=== PATIENT | female | born 1970 | race African-American/Black ===

== ENCOUNTER → 2016-09-09 | Emergency (ER) | payer OTHER ==
[~2016-09-09] MED LIST: IBUPROFEN 600 MG TABLET (FP) PO ONE; amLODIPine BESYLATE 5 MG TABLET (FP) ONE; amLODIPine BESYLATE 5 MG TABLET (FP) PO ONE
[2016-09-09 10:00] VITALS: TEMP 98.3; BMI 26.6
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
[2016-09-09 13:21] VITALS: BP 138/90; PULSE 80
== END | disposition home or self-care (01) ==
LOC: JER 09:51
DX: S00.03XA Contusion of scalp, initial encounter (principal); I10 Essential (primary) hypertension; F41.9 Anxiety disorder, unspecified; V43.52XA Car driver injured in collision with other type car in traffic accident, initial encounter; Y92.414 Local residential or business street as the place of occurrence of the external cause; Y93.89 Activity, other specified; Y99.8 Other external cause status
CPT/HCPCS: 70450-TC; 84703; 99282-25

== ENCOUNTER 2017-04-23 17:49 | Emergency (ER) | payer OTHER ==
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
[2017-04-23 19:20] VITALS: TEMP 98.9; BMI 24.0
[2017-04-23 19:26] LABS: MCH 31.5 pg (25.7-33.7); MCHC 32.5 g/dl (32.0-36.0); MEAN CELL VOLUME 97.1 fl (80-96); MEAN PLT VOLUME 10.6 fl (7.5-11.1); PLATELET COUNT 213 K/MM3 (134-434); WHITE BLOOD COUNT 8.3 K/mm3 (4.0-10.0)
[2017-04-23 19:32] LABS: URINE APPEARANCE CLEAR; URINE BILIRUBIN NEGATIVE (NEGATIVE); URINE BLOOD 1+ (NEGATIVE); URINE COLOR LTYELLOW; URINE GLUCOSE (UA) NEGATIVE (NEGATIVE); URINE KETONE NEGATIVE (NEGATIVE); URINE LEUK ESTERASE NEGATIVE (NEGATIVE); URINE NITRITE NEGATIVE (NEGATIVE); URINE PROTEIN NEGATIVE (NEGATIVE); URINE UROBILINOGEN NEGATIVE mg/dL (0.2-1.0)
[2017-04-23 19:52] LABS: URINE RBC 1 /hpf (0-3); URINE WBC <1 /hpf (3-5)
[2017-04-23 20:09] LABS: ALK PHOS 59 U/L (45-117); ANION GAP 7 (8-16); BILIRUBIN,TOTAL 0.2 mg/dL (0.2-1.0); CALCIUM 9.4 mg/dL (8.5-10.1); CO2 29 mmol/L (21-32); CREATININE 0.5 mg/dL (0.55-1.02); GLUCOSE,RANDOM 97 mg/dL (74-106); SGOT/AST 22 U/L (15-37); SGPT/ALT 32 U/L (12-78); TOT PROT 7.4 g/dl (6.4-8.2)
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
[2017-04-23 21:45] VITALS: BP 140/68; PULSE 68
== END 2017-04-23 21:45 | disposition home or self-care (01) ==
LOC: JER 17:49
DX: M54.5 Low back pain (principal); V47.5XXA Car driver injured in collision with fixed or stationary object in traffic accident, initial encounter; Y92.488 Other paved roadways as the place of occurrence of the external cause; Y93.89 Activity, other specified; I10 Essential (primary) hypertension; F32.9 Major depressive disorder, single episode, unspecified; F17.210 Nicotine dependence, cigarettes, uncomplicated
CPT/HCPCS: 36415; 70450-TC; 71010-TC; 72125-TC; 73130-TC-LT; 80053; 81003; 81015; 84703; 85027; 99282-25

== ENCOUNTER 2021-02-03 23:34 | Emergency (ER) | payer SELFPAY ==
[2021-02-04 00:01] VITALS: BP 108/72; PULSE 74; TEMP 97.9; BMI 24.0
== END 2021-02-04 05:03 | disposition home or self-care (01) ==
LOC: JER 23:34
DX: F10.920 Alcohol use, unspecified with intoxication, uncomplicated (principal)
CPT/HCPCS: 99281-25

== ENCOUNTER 2022-04-20 10:24 | Emergency (ER) | payer OTHER ==
[2022-04-20 10:29] VITALS: BP 115/71; PULSE 86; RESP 18; TEMP 98.6; BMI 25.6
== END 2022-04-20 13:38 | disposition home or self-care (01) ==
LOC: JER 10:24
DX: J06.9 Acute upper respiratory infection, unspecified (principal)
CPT/HCPCS: 0241U-QW; 71046-TC-FY; 99284-25

== ENCOUNTER 2023-02-25 12:09 | Emergency (ER) | payer OTHER ==
[2023-02-25 12:22] VITALS: RESP 18; BMI 25.7
[2023-02-25 14:19] LABS: BASO % 0.9 % (0-2.0); EOS % 0.2 % (0-4.5); HEMATOCRIT 41.7 % (32.4-45.2); HEMOGLOBIN 13.5 GM/dL (10.7-15.3); LYMPH % 23.2 % (8-40); MCH 29.7 pg (25.7-33.7); MCHC 32.4 g/dl (32.0-36.0); MEAN CELL VOLUME 91.5 fl (80-96); MEAN PLT VOLUME 10.3 fl (7.5-11.1); MONO % 9.1 % (3.8-10.2); NEUT % 66.6 % (42.8-82.8); PLATELET COUNT 331 10^3/uL (134-434); RBC 4.55 M/mm3 (3.60-5.2); RDW 14.1 % (11.6-15.6); WHITE BLOOD COUNT 12.9 K/mm3 (4.0-10.0)
[2023-02-25 14:23] LABS: EPI CELLS >36 /uL (0-25.1); HYALINE CASTS 4 /uL (0-3.1); URINE APPEARANCE CLOUDY; URINE BACTERIA 1032 /uL (0-1359); URINE BILIRUBIN NEGATIVE (NEGATIVE); URINE COLOR DK YELLOW; URINE GLUCOSE (UA) NEGATIVE (NEGATIVE); URINE KETONE 2+ (NEGATIVE); URINE LEUK ESTERASE 1+ (NEGATIVE); URINE NITRITE NEGATIVE (NEGATIVE); URINE PROTEIN 1+ (NEGATIVE); URINE RBC 32 /uL (0-23.9); URINE WBC 52 /uL (0-25.8)
[2023-02-25 14:40] LABS: ALBUMIN 4.5 g/dl (3.4-5.0); BLOOD UREA NITROGEN 8.4 mg/dL (7-18); CALCIUM 9.8 mg/dL (8.5-10.1)
[2023-02-25 14:43] LABS: CREATININE 0.6 mg/dL (0.55-1.3)
[2023-02-25 14:45] LABS: BILIRUBIN,TOTAL 0.6 mg/dL (0.2-1); TOT PROT 7.9 g/dl (6.4-8.2)
[2023-02-25] MEDS ORDERED: POTASSIUM CHLORIDE TABS 20 MEQ TABLET.ER (FP) PO ONE ×2 (15:53→15:58)
[2023-02-25] MEDS ORDERED: CEPHALEXIN 250 MG/5 ML ORAL SUSPENSION PO ONE (15:54)
[2023-02-25] MEDS ORDERED: CEPHALEXIN MONOHYDRATE 500 MG CAPSULE (UD) ONE (15:57)
[2023-02-25 16:21] VITALS: BP 159/85; PULSE 65; TEMP 98.5
== END 2023-02-25 16:26 | disposition home or self-care (01) ==
LOC: JER 12:09
DX: R35.0 Frequency of micturition (principal); R39.11 Hesitancy of micturition; R53.83 Other fatigue; R61 Generalized hyperhidrosis; R10.9 Unspecified abdominal pain; R11.0 Nausea; R63.0 Anorexia; N39.9 Disorder of urinary system, unspecified
CPT/HCPCS: 36415; 80053; 81003; 85025; 87086; 93005; 93010; 99284-25

== ENCOUNTER 2023-03-02 20:45 | Observation (INO) | payer OTHER ==
[2023-03-02] MEDS ORDERED: SODIUM CHLORIDE 0.9% 1000 ML INFUS.BAG IV ONE (21:21)
[2023-03-02 22:29] LABS: ARTERIAL BLD GAS O2 SATURATION 54.8 % (95-98); ARTERIAL BLOOD GAS BASE EXCESS 3.7 mmol/L (-2-2); BASO % 0.3 % (0-2.0); EOS % 1.1 % (0-4.5); HEMATOCRIT 40.6 % (32.4-45.2); HEMOGLOBIN 13.7 GM/dL (10.7-15.3); MCH 30.3 pg (25.7-33.7); MCHC 33.7 g/dl (32.0-36.0); MEAN CELL VOLUME 90.1 fl (80-96); MEAN PLT VOLUME 8.9 fl (7.5-11.1); MONO % 10.8 % (3.8-10.2); NEUT % 61.8 % (42.8-82.8); PLATELET COUNT 255 10^3/uL (134-434); RDW 14.6 % (11.6-15.6); WHITE BLOOD COUNT 7.6 K/mm3 (4.0-10.0)
[2023-03-02 22:35] LABS: ARTERIAL BLOOD GAS PO2 29.6 mmHg (80-100)
[2023-03-02 22:47] LABS: POTASSIUM 3.1 mmol/L (3.5-5.1)
[2023-03-02 22:49] LABS: CALCIUM 9.6 mg/dL (8.5-10.1)
[2023-03-02 22:50] LABS: ALBUMIN 3.8 g/dl (3.4-5.0); BLOOD UREA NITROGEN 10.8 mg/dL (7-18)
[2023-03-02 22:53] LABS: CREATININE 0.6 mg/dL (0.55-1.3)
[2023-03-02 22:56] LABS: BILIRUBIN,TOTAL 0.5 mg/dL (0.2-1); TOT PROT 6.9 g/dl (6.4-8.2)
[2023-03-02] MEDS ORDERED: POTASSIUM CHLORIDE TABS 20 MEQ TABLET.ER (FP) PO ONE (23:53)
[2023-03-03] MEDS ORDERED: POTASSIUM CHLORIDE TABS 20 MEQ TABLET.ER (FP) PO ONE (00:37)
[2023-03-03] MEDS: DEXTROSE 5%-0.45% SALINE 1,000 ML IV SCH (01:09)
[2023-03-03 04:51] VITALS: BMI 24.7
[2023-03-03 08:39] LABS: BASO % 0.5 % (0-2.0); HEMATOCRIT 39.7 % (32.4-45.2); HEMOGLOBIN 13.1 GM/dL (10.7-15.3); LYMPH % 18.5 % (8-40); MCH 30.4 pg (25.7-33.7); MCHC 32.9 g/dl (32.0-36.0); MEAN CELL VOLUME 92.3 fl (80-96); MEAN PLT VOLUME 9.6 fl (7.5-11.1); MONO % 9.1 % (3.8-10.2); NEUT % 70.9 % (42.8-82.8); PLATELET COUNT 259 10^3/uL (134-434); RDW 14.7 % (11.6-15.6); WHITE BLOOD COUNT 9.3 K/mm3 (4.0-10.0)
[2023-03-03 09:40] LABS: POTASSIUM 3.9 mmol/L (3.5-5.1)
[2023-03-03 09:50] LABS: ALBUMIN 3.6 g/dl (3.4-5.0); BLOOD UREA NITROGEN 12.2 mg/dL (7-18)
[2023-03-03 09:51] LABS: CALCIUM 8.9 mg/dL (8.5-10.1)
[2023-03-03 09:53] LABS: CREATININE 0.6 mg/dL (0.55-1.3)
[2023-03-03 09:54] LABS: BILIRUBIN,TOTAL 0.5 mg/dL (0.2-1); TOT PROT 6.4 g/dl (6.4-8.2)
[2023-03-03 14:49] LABS: PHENCYCLIDINE,URINE NEGATIVE (NEGATIVE)
[2023-03-03 14:50] LABS: METHADONE, UR NEGATIVE (NEGATIVE); OPIATES, URI NEGATIVE (NEGATIVE); URINE BARBITURATES NEGATIVE (NEGATIVE)
[2023-03-03 14:59] LABS: COCAINE, UR NEGATIVE (NEGATIVE); URINE AMPHETAMINES NEGATIVE (NEGATIVE); URINE BENZODIAZEPINES POSITIVE (NEGATIVE)
[2023-03-03 15:44] LABS: URINE APPEARANCE CLOUDY; URINE BILIRUBIN NEGATIVE (NEGATIVE); URINE COLOR YELLOW; URINE GLUCOSE (UA) NEGATIVE (NEGATIVE); URINE KETONE NEGATIVE (NEGATIVE)
[2023-03-03 15:45] LABS: PH,URINE 6.5 (5.0-8.0); URINE LEUK ESTERASE TRACE (NEGATIVE); URINE NITRITE NEGATIVE (NEGATIVE); URINE PROTEIN NEGATIVE (NEGATIVE)
[2023-03-03 15:46] LABS: EPI CELLS >36 /uL (0-25.1); HYALINE CASTS 5 /uL (0-3.1); URINE BACTERIA 1664 /uL (0-1359); URINE WBC 76 /uL (0-25.8)
[2023-03-03 15:55] LABS: URINE RBC 57.1 /uL (0-23.9)
[2023-03-03] MEDS: HEPARIN NA (PORCINE) 5,000 UNITS/ML 1ML VIAL SQ SCH (21:09)
[2023-03-04] MEDS: HEPARIN NA (PORCINE) 5,000 UNITS/ML 1ML VIAL SQ SCH ×2 (09:14→21:19)
[2023-03-04] MEDS ORDERED: SERTRALINE HCL 50 MG TABLET (FP) PO SCH ×2 (10:00→13:46)
[2023-03-04] MEDS: ALPRAZolam 1 MG TABLET PO SCH ×2 (13:58→21:19)
[2023-03-04] MEDS: DEXTROSE 5%-0.45% SALINE 1,000 ML IV SCH (16:51)
[2023-03-04] MEDS ORDERED: ACETAMINOPHEN 325 MG TABLET (FP) PO PRN (19:45)
[2023-03-05] MEDS: ALPRAZolam 1 MG TABLET PO SCH (09:52)
[2023-03-05] MEDS: HEPARIN NA (PORCINE) 5,000 UNITS/ML 1ML VIAL SQ SCH (09:52)
[2023-03-05 10:21] VITALS: RESP 16; TEMP 98.6
[2023-03-05 12:09] VITALS: BP 123/81; PULSE 66
== END 2023-03-05 14:16 | disposition home or self-care (01) ==
LOC: JER 20:45 → JERBED 23:56 → J4W 03-03 02:36
PROVIDERS: ADMIT Internal Medicine; ATTEND Internal Medicine
PROC: 3E023GC Introduction of Other Therapeutic Substance into Muscle, Percutaneous Approach (ICD-10-PCS; principal; 2023-03-02)
PROC: 3E0337Z Introduction of Electrolytic and Water Balance Substance into Peripheral Vein, Percutaneous Approach (ICD-10-PCS; 2023-03-02)
DX: T42.4X4A Poisoning by benzodiazepines, undetermined, initial encounter (principal); Y92.89 Other specified places as the place of occurrence of the external cause; R40.4 Transient alteration of awareness; F41.8 Other specified anxiety disorders; I10 Essential (primary) hypertension
CPT/HCPCS: 36415; 36600; 70450-TC; 71045-TC-FY; 72125-TC; 80053; 80307; 81003; 82803; 82962; 83605; 85025; 87086; 93005; 93010; 96372; 99285-25; G0378; J1644

== ENCOUNTER 2023-04-12 17:11 | Inpatient (IN) | payer OTHER ==
[2023-04-12 18:07] LABS: HEMATOCRIT 41.5 % (32.4-45.2); HEMOGLOBIN 13.7 GM/dL (10.7-15.3); MCH 29.6 pg (25.7-33.7); MEAN CELL VOLUME 89.7 fl (80-96); MEAN PLT VOLUME 10.4 fl (7.5-11.1); PLATELET COUNT 253 10^3/uL (134-434); RBC 4.63 M/mm3 (3.60-5.2); RDW 14.2 % (11.6-15.6); WHITE BLOOD COUNT 20.3 K/mm3 (4.0-10.0)
[2023-04-12 18:24] LABS: INR 1.14 (0.83-1.09); PROTHROMBIN TIME (PATIENT) 13.2 SEC (9.7-13.0)
[2023-04-12 18:26] LABS: ACTIVATED PTT 26.4 SECONDS (25.2-36.5)
[2023-04-12 18:27] LABS: POTASSIUM 3.2 mmol/L (3.5-5.1)
[2023-04-12 18:29] LABS: BLOOD UREA NITROGEN 6.9 mg/dL (7-18); CALCIUM 9.3 mg/dL (8.5-10.1); MAGNESIUM 1.6 mg/dL (1.8-2.4)
[2023-04-12 18:30] LABS: ALBUMIN 4.5 g/dl (3.4-5.0)
[2023-04-12 18:32] LABS: CREATININE 0.6 mg/dL (0.55-1.3)
[2023-04-12 18:34] LABS: BILIRUBIN,TOTAL 0.4 mg/dL (0.2-1); TOT PROT 7.6 g/dl (6.4-8.2)
[2023-04-12 18:37] LABS: N-TERMINAL BNP 229.7 pg/ml (5-125)
[2023-04-12] MEDS ORDERED: MAGNESIUM SULF 50% (8.12 MEQ/2 ML-1 GM VIAL) IVPB ONE (18:44)
[2023-04-12] MEDS ORDERED: MAGNESIUM SULFATE IN WATER 2 GM/50 ML IVPB IVPB ONE (18:48)
[2023-04-12 18:58] LABS: URINE APPEARANCE CLEAR; URINE BILIRUBIN NEGATIVE (NEGATIVE); URINE COLOR YELLOW; URINE GLUCOSE (UA) NEGATIVE (NEGATIVE); URINE KETONE TRACE (NEGATIVE); URINE LEUK ESTERASE NEGATIVE (NEGATIVE); URINE NITRITE NEGATIVE (NEGATIVE); URINE PROTEIN NEGATIVE (NEGATIVE); URINE UROBILINOGEN 0.2 mg/dL (0.2-1.0)
[2023-04-12 19:02] LABS: ANISOCYTOSIS 0; MACROCYTOSIS 0
[2023-04-12 20:22] LABS: MAGNESIUM 1.7 mg/dL (1.8-2.4)
[2023-04-12 20:23] LABS: POTASSIUM 2.9 mmol/L (3.5-5.1)
[2023-04-12] MEDS ORDERED: POTASSIUM CHLORIDE ORAL LIQUID 20 MEQ/15 ML PO ONE (21:14)
[2023-04-12] MEDS ORDERED: AZITHROMYCIN IVPB 500 MG in DEXTROSE 5%-WATER - 250 ML IVPB ONE (21:20)
[2023-04-12] MEDS ORDERED: CEFTRIAXONE 1,000 MG in DEXTROSE 5%-WATER - 50 ML IVPB ONE (21:20)
[2023-04-12] MEDS: KCL 10 MEQ IVPB 10 MEQ/100 ML INFUS.BAG IVPB SCH ×2 (21:24→21:25)
[2023-04-12] MEDS ORDERED: POTASSIUM CHLORIDE TABS 20 MEQ TABLET.ER (FP) PO ONE ×2 (21:29→21:54)
[2023-04-12] MEDS ORDERED: CEFTRIAXONE 1 GM/50 ML BAG ONE (21:29)
[2023-04-12] MEDS ORDERED: AZITHROMYCIN IVPB 500 MG/250 ML BAG IVPB ONE (21:30)
[2023-04-13 01:30] LABS: URINE BENZODIAZEPINES NEGATIVE (NEGATIVE)
[2023-04-13 01:31] LABS: COCAINE, UR NEGATIVE (NEGATIVE); OPIATES, URI NEGATIVE (NEGATIVE); PHENCYCLIDINE,URINE NEGATIVE (NEGATIVE); URINE AMPHETAMINES NEGATIVE (NEGATIVE); URINE BARBITURATES NEGATIVE (NEGATIVE)
[2023-04-13 01:42] LABS: METHADONE, UR NEGATIVE (NEGATIVE)
[2023-04-13 06:25] LABS: BASO % 0.7 % (0-2.0); EOS % 0.6 % (0-4.5); HEMATOCRIT 39.9 % (32.4-45.2); HEMOGLOBIN 13.4 GM/dL (10.7-15.3); LYMPH % 16.4 % (8-40); MCH 29.9 pg (25.7-33.7); MCHC 33.5 g/dl (32.0-36.0); MEAN CELL VOLUME 89.2 fl (80-96); MEAN PLT VOLUME 10.2 fl (7.5-11.1); MONO % 9.8 % (3.8-10.2); NEUT % 72.5 % (42.8-82.8); PLATELET COUNT 213 10^3/uL (134-434); RBC 4.47 M/mm3 (3.60-5.2); RDW 14.3 % (11.6-15.6); WHITE BLOOD COUNT 10.3 K/mm3 (4.0-10.0)
[2023-04-13 06:41] LABS: POTASSIUM 3.1 mmol/L (3.5-5.1)
[2023-04-13 06:45] LABS: ALBUMIN 3.9 g/dl (3.4-5.0); BLOOD UREA NITROGEN 4.3 mg/dL (7-18); CALCIUM 9.2 mg/dL (8.5-10.1); MAGNESIUM 2.2 mg/dL (1.8-2.4)
[2023-04-13 06:48] LABS: CREATININE 0.5 mg/dL (0.55-1.3)
[2023-04-13 06:50] LABS: BILIRUBIN,TOTAL 0.5 mg/dL (0.2-1); TOT PROT 7.2 g/dl (6.4-8.2)
[2023-04-13] MEDS ORDERED: POTASSIUM CHLORIDE ORAL LIQUID 20 MEQ/15 ML PO ONE (08:53)
[2023-04-13] MEDS ORDERED: ALPRAZolam 1 MG TABLET ONE (09:16)
[2023-04-13] MEDS ORDERED: POTASSIUM CHLORIDE ORAL LIQUID 20 MEQ/15 ML ONE (09:16)
[2023-04-13] MEDS ORDERED: SERTRALINE HCL 50 MG TABLET (FP) ONE (09:16)
[2023-04-13] MEDS ORDERED: HEPARIN NA (PORCINE) 5,000 UNITS/ML 1ML VIAL ONE (09:17)
[2023-04-13] MEDS: ALPRAZolam 1 MG TABLET PO SCH ×3 (09:26→22:24)
[2023-04-13] MEDS: SERTRALINE HCL 50 MG TABLET (FP) PO SCH (09:26)
[2023-04-13] MEDS: HEPARIN NA (PORCINE) 5,000 UNITS/ML 1ML VIAL SQ SCH ×2 (09:31→21:22)
[2023-04-13] MEDS ORDERED: GABAPENTIN 100 MG CAPSULE ONE (12:48)
[2023-04-13] MEDS: GABAPENTIN 100 MG CAPSULE PO SCH ×2 (12:59→21:21)
[2023-04-13] MEDS ORDERED: ACETAMINOPHEN 325 MG TABLET (FP) PO ONE (15:46)
[2023-04-13] MEDS ORDERED: ACETAMINOPHEN 325 MG TABLET (FP) ONE (15:47)
[2023-04-13 16:52] VITALS: BMI 25.6
[2023-04-13] MEDS: DOXYCYCLINE HYCLATE 100 MG CAPSULE PO SCH (21:21)
[2023-04-13] MEDS: CEFTRIAXONE 1 GM in DEXTROSE 5%-WATER - 50 ML IVPB SCH (21:23)
[2023-04-13] MEDS: traZODone HCL 100 MG TABLET (FP) PO SCH (21:24)
[2023-04-14] MEDS: GABAPENTIN 100 MG CAPSULE PO SCH ×3 (05:13→22:11)
[2023-04-14 07:09] LABS: BASO % 0.7 % (0-2.0); EOS % 1.4 % (0-4.5); HEMATOCRIT 38.5 % (32.4-45.2); HEMOGLOBIN 12.8 GM/dL (10.7-15.3); MCH 30.2 pg (25.7-33.7); MCHC 33.3 g/dl (32.0-36.0); MEAN CELL VOLUME 90.9 fl (80-96); MEAN PLT VOLUME 10.6 fl (7.5-11.1); MONO % 11.6 % (3.8-10.2); NEUT % 60.3 % (42.8-82.8); PLATELET COUNT 201 10^3/uL (134-434); RBC 4.24 M/mm3 (3.60-5.2); RDW 14.1 % (11.6-15.6); WHITE BLOOD COUNT 7.6 K/mm3 (4.0-10.0)
[2023-04-14 07:24] LABS: POTASSIUM 3.7 mmol/L (3.5-5.1)
[2023-04-14 07:28] LABS: CALCIUM 8.8 mg/dL (8.5-10.1)
[2023-04-14 07:29] LABS: ALBUMIN 3.4 g/dl (3.4-5.0)
[2023-04-14 07:32] LABS: CREATININE 0.5 mg/dL (0.55-1.3)
[2023-04-14 07:33] LABS: BILIRUBIN,TOTAL 0.3 mg/dL (0.2-1)
[2023-04-14 07:34] LABS: TOT PROT 6.4 g/dl (6.4-8.2)
[2023-04-14] MEDS: CEFTRIAXONE 1 GM in DEXTROSE 5%-WATER - 50 ML IVPB SCH (09:54)
[2023-04-14] MEDS: HEPARIN NA (PORCINE) 5,000 UNITS/ML 1ML VIAL SQ SCH ×2 (09:54→22:11)
[2023-04-14] MEDS: SERTRALINE HCL 50 MG TABLET (FP) PO SCH (09:55)
[2023-04-14] MEDS: ALPRAZolam 1 MG TABLET PO SCH ×2 (09:55→22:02)
[2023-04-14] MEDS: DOXYCYCLINE HYCLATE 100 MG CAPSULE PO SCH ×2 (09:55→17:13)
[2023-04-14] MEDS: ACETAMINOPHEN 325 MG TABLET (FP) PO PRN ×2 (17:16→23:26)
[2023-04-14] MEDS: traZODone HCL 100 MG TABLET (FP) PO SCH (22:11)
[2023-04-15] MEDS: GABAPENTIN 100 MG CAPSULE PO SCH (06:45)
[2023-04-15] MEDS: SERTRALINE HCL 50 MG TABLET (FP) PO SCH (10:42)
[2023-04-15] MEDS: DOXYCYCLINE HYCLATE 100 MG CAPSULE PO SCH (10:43)
[2023-04-15] MEDS: HEPARIN NA (PORCINE) 5,000 UNITS/ML 1ML VIAL SQ SCH (10:43)
[2023-04-15] MEDS: CEFTRIAXONE 1 GM in DEXTROSE 5%-WATER - 50 ML IVPB SCH (10:43)
[2023-04-15] MEDS: ALPRAZolam 1 MG TABLET PO SCH (11:39)
[2023-04-15 11:42] VITALS: BP 128/73; PULSE 78; RESP 18; TEMP 98.6
== END 2023-04-15 14:59 | disposition home or self-care (01) | DRG 139 ==
LOC: JER 17:11 → JERBED 21:51 → J4S 04-13 16:20
PROVIDERS: ADMIT Internal Medicine; ATTEND Internal Medicine
DX: J18.9 Pneumonia, unspecified organism (principal); I10 Essential (primary) hypertension; E78.5 Hyperlipidemia, unspecified; F10.10 Alcohol abuse, uncomplicated; F41.8 Other specified anxiety disorders; E83.42 Hypomagnesemia; E87.6 Hypokalemia; F43.10 Post-traumatic stress disorder, unspecified; F41.0 Panic disorder [episodic paroxysmal anxiety]
CPT/HCPCS: 0241U-QW; 36415; 70450-TC; 71045-TC-FY; 71275-TC; 80053; 80307; 81003; 83735; 83880; 84132; 84484; 85025; 85610; 85730; 87040; 87086; 87899; 99285-25; J1644; Q9967

== ENCOUNTER 2023-08-20 08:43 | Emergency (ER) | payer OTHER ==
[2023-08-20 08:52] VITALS: BP 99/63; PULSE 99; RESP 18; TEMP 101.8; BMI 26.8
[2023-08-20] MEDS ORDERED: ACETAMINOPHEN 1000 MG/100 ML BAG IVPB ONE (09:40)
[2023-08-20] MEDS ORDERED: ACETAMINOPHEN INJECTION 100 ML IVPB ONE (09:57)
[2023-08-20 10:24] LABS: BASO % 0.6 % (0-2.0); HEMATOCRIT 42.7 % (32.4-45.2); HEMOGLOBIN 13.9 GM/dL (10.7-15.3); LYMPH % 17.3 % (8-40); MCH 29.1 pg (25.7-33.7); MCHC 32.7 g/dl (32.0-36.0); MEAN CELL VOLUME 89.1 fl (80-96); MEAN PLT VOLUME 8.8 fl (7.5-11.1); MONO % 12.7 % (3.8-10.2); NEUT % 69.4 % (42.8-82.8); PLATELET COUNT 168 10^3/uL (134-434); RBC 4.79 M/mm3 (3.60-5.2); RDW 14.1 % (11.6-15.6); WHITE BLOOD COUNT 3.5 K/mm3 (4.0-10.0)
[2023-08-20 10:29] LABS: INR 1.1 (0.83-1.09); PROTHROMBIN TIME (PATIENT) 12.8 SEC (9.7-13.0)
[2023-08-20 10:32] LABS: ACTIVATED PTT 31.4 SECONDS (25.2-36.5)
[2023-08-20 10:44] LABS: POTASSIUM 3.7 mmol/L (3.5-5.1)
[2023-08-20 10:45] LABS: CALCIUM 9.2 mg/dL (8.5-10.1)
[2023-08-20 10:46] LABS: ALBUMIN 3.8 g/dl (3.4-5.0); BLOOD UREA NITROGEN 11.6 mg/dL (7-18)
[2023-08-20 10:49] LABS: CREATININE 0.6 mg/dL (0.55-1.3)
[2023-08-20 10:50] LABS: TOT PROT 7.8 g/dl (6.4-8.2)
[2023-08-20 10:53] LABS: BILIRUBIN,TOTAL 0.4 mg/dL (0.2-1)
== END 2023-08-20 12:54 | disposition home or self-care (01) ==
LOC: JER 08:43
PROC: 3E033NZ Introduction of Analgesics, Hypnotics, Sedatives into Peripheral Vein, Percutaneous Approach (ICD-10-PCS; principal; 2023-08-20)
DX: R50.9 Fever, unspecified (principal); R05.9 Cough, unspecified; J10.1 Influenza due to other identified influenza virus with other respiratory manifestations; J06.9 Acute upper respiratory infection, unspecified; Z20.822 Contact with and (suspected) exposure to COVID-19
CPT/HCPCS: 0241U-QW; 36415; 71046-TC-FY; 80053; 84484; 84703; 85025; 85610; 85730; 93005; 93010; 99285-25